=== PATIENT | female | born 1940 | race Caucasian/White ===

== ENCOUNTER 2023-10-31 21:44 | Inpatient (IN) | payer MEDICARE, SELFPAY ==
[2023-10-31] VITALS (7 sets, daily range): BP systolic 113–124; BP diastolic 73–85; BMI 25.7; BMI 25.1
--- NOTE | 2023-10-31 17:39 | ED.GENMED ---
History of Present Illness
General
Chief Complaint: Abdominal Pain
Source: patient
Exam Limitations: none
Time Seen by Provider: 10/31/23 17:06
Nursing documentation reviewed up to this point in time: agreed with
Travel History
Have you had any contact with someone who has COVID-19?: No
Do you have any symptoms of coronavirus? Fever > 100 degrees, chills, cough, shortness of breath, sore throat, loss of taste or smell, muscle aches, or headache?: No
History of Present Illness
History of Present Illness:
83 yr old female presents to the ED for evaluation of left-sided abdominal pain that started middle the night. She has nauseous with this. She denies any radiation. Denies any vomiting. She has been able to drink fluids and take her
medication.She denies any new frequency urgency or dysuria. She reports she was presently on antibiotics for sinus infection, doxycycline however symptoms were not improving and therefore her ENT recently sent a prescription to her pharmacy for
Cipro 5 mg twice a day. Has not taken this yet. She was also on steroids but has stopped these about a week ago.
Past History
Past History
ED Past Medical History: Arrthythmia (atrial tachycardia), Cancer (basal cell carcinoma on back), GERD, Hypercholesterolemia, Psychiatric (generalized anxiety disorder), Other (Seasonal allergies, rheumatic heart disease 1950, BPPV), Other
(osteoarthritis) and Other (Lyme disease, diverticulosis)
ED Past Surgical History: Orthopedic (left wrist fracture 1959) and Other (hallux valgus, bunionectomy, sinoplasty, rhinoplasty)
Social History
Tobacco: Non-smoker
Alcohol: Occasional
Drug: None
Personal:
Living: with family
Employment: Retired
Family History
Family History: CAD
Review of Systems
Review of Systems
Allergies reviewed?: Yes
All Other Systems: ROS reviewed and negative except as documented in HPI and ROS
Constitutional: Reports no symptoms; Denies fever, fatigue or chills
EENT: Reports no symptoms
Respiratory: Reports no symptoms
Cardiac: Reports no symptoms
ABD/GI: Reports abdominal pain and nausea; Denies vomiting
: Reports no symptoms
Musculoskeletal: Reports no symptoms
Skin: Reports no symptoms
Neurological: Reports no symptoms
Psychiatric: Reports no symptoms
Phy Exam
General Physical Exam
General Presentation: no apparent distress
General age: appears stated age
General Skin: warm and dry
General Habitus: normal
General Mental: alert
General Hydration: appears well hydrated
Gastrointestinal Exam
Gastrointestinal Exam: soft and other (tender left side of abdomen, no guarding )
Course
Orders/Labs/Results
Orders:
Orders
10/31/23 17:37
IV Insert/Care/Rem.- Treatment PRN
0.9% Sodium Chloride 1000 ml [Nss] 1,000 ml IV BOLUS
10/31/23 17:39
Ondansetron Injectable [Zofran] 4 mg IV NOW STA
10/31/23 17:54
Complete Blood Count/With Diff Urgent
Comprehensive Metabolic Panel Urgent
Lipase Urgent
Urinalysis Reflex To Culture Urgent
Date Specimen was Collected: 10/31/23
Time Specimen was Collected: 17:43
Urine Microscopic Reflex Cult Urgent
Urine Culture Urgent
ELLY Source: U
Specimen Description:
Date Specimen was Collected: 10/31/23
Time Specimen was Collected: 17:43
10/31/23 18:05
CT Abd/Pel (IV only)-DH only Urgent
Comment:
Reason For Exam: left sided abd pain
10/31/23 20:36
Ciprofloxacin 400 mg IVPB NOW Ciprofloxacin 400 mg/[id number] [Cipro 400 mg] 200 ml IV NOW
MetroNIDAZOLE IVPB 500 mg IVPB NOW MetroNIDAZOLE 500 MG/100 ML [Flagyl 500 mg] 100 ml IV NOW
Abnormal Lab Results
10/31/23
17:54
WBC 14.7 H 10^3/uL
(4.8-10.8)
RBC 4.11 L 10^6/uL
(4.20-5.40)
Hct 36.7 L %
(37.0-47.0)
MCH 32.6 H pg
(27.0-31.0)
Abs Immat Gran (auto) 0.1 H 10^3/uL
(0-0.05)
Absolute Neuts (auto) 11.6 H 10^3/uL
(1.4-6.5)
Absolute Monos (auto) 1.6 H 10^3/uL
(0.1-0.6)
Neutrophils % 78.8 H %
(42.2-75.2)
Lymphocytes % 9.4 L %
(20.5-51.1)
Monocytes % 10.7 H %
(1.7-9.3)
Sodium 133 L mmol/L
(135-145)
BUN 19 H mg/dl
(7-17)
Glucose 106 H mg/dl
(70-99)
Total Bilirubin 2.0 H mg/dl
(0.2-1.3)
Total Protein 6.2 L g/dl
(6.3-8.2)
Urine Bilirubin 1+ A
(Negative)
Leukocyte Esterase Rfl 1+ A
(Negative)
Urine RBC 3-6 A /HPF
(0-2)
Urine Bacteria (Reflex) Moderate A
(Negative)
10/31/23 17:54
10/31/23 17:54
Vital Signs
Initial and Last Documented VS:
Initial Vital Signs
Temp Pulse Resp BP Pulse Ox
97.6 F 98 20 113/78 100
10/31/23 16:57 10/31/23 16:57 10/31/23 16:57 10/31/23 16:57 10/31/23 16:57
Last Documented Vital Signs
Temp Pulse Resp BP Pulse Ox
97.6 F 98 20 117/79 98
10/31/23 16:57 10/31/23 16:57 10/31/23 16:57 10/31/23 20:00 10/31/23 20:15
MDM/Problems Addressed
Differential Diagnosis Includes:
Not limited to UTI diverticulitis pancreatitis constipation colitis
MDM/Problems Addressed:
83-year-old female presents today with left-sided abdominal pain. Patient recently being treated by ENT for sinus infection was on doxycycline supposed to start Cipro today. She also completed steroids about a week ago. She presented awake alert
no weak distress no fever white count minimally elevated. Mildly tender to left abdomen. CT shows findings consistent with diverticulitis with contained perforation. I spoke with Dr. Langley of colorectal surgery. Since patient was supposed to
start Cipro today will order IV Cipro and IV Flagyl. Patient to be admitted to the hospital. Case discussed admitting hospitalist
Chronic conditions affecting care:
Recent sinus infection recently stopped steroids 1 week ago supposed to start Cipro tonight.
*Radiology
Radiology exam reviewed: radiology read reviewed
*Pulse Oximetry
Patient hypoxic: no
*Critical Care Note
Total Time (30-74mins, 75-104mins- exclusive of procedures): Not Applicable
Patient Management
Discussion with other providers: Phlebotomy Lab Assistant (Dr Langley )
ED Attending Note
-
Portions of this chart may have been created with voice recognition software.� Occasional wrong word or��sound alike� substitutions may have occurred due to the inherent limitations of voice recognition software.
Discharge Plan
Departure
Patient Disposition: Admit
Date of Disposition: 10/31/23
Time of Disposition: 20:40
Admit to: Med/Surg
Admit to doctor: hospitalist
Presentation/result/management discussed w/ accepting MD/DO: Hospitalist
Patient with high blood pressure during this ER visit?: No
Condition: Fair
Covid-19: Not Applicable
Discharge Problem:
diverticulitis w/ contained perforation
Prescriptions:
No Action
ketotifen fumarate [Zaditor] 1 DROP drops
1 drp BOTH EYES DAILYPRN PRN (Reason: allergy)
propranolol 60 MG capsule,extended release 24 hr
60 mg PO DAILY
B-complex with vitamin C 1 CAPLET tablet
1 cap PO DAILY
famotidine 20 MG tablet
20 mg PO DAILY
atorvastatin 40 MG tablet
40 mg PO QPM Qty: 30 0RF
lorazepam 0.5 MG tablet
0.5 mg PO Q4HPRN PRN (Reason: anxiety)
Patient Comments:
PATIENT SILK SCREEN ETCHER ON 06/22/21 #30
olopatadine [Patanol] 1 DROP drops
1 drp BOTH EYES DAILYPRN PRN (Reason: allergies)
Bifidobacterium infantis [Align] 4 MG capsule
4 mg PO DAILY
turmeric 400 MG capsule
400 mg PO DAILY
promethazine-codeine 5 ML syrup
10 ml PO BIDPRN PRN (Reason: COUGH)
Patient Comments:
09/21/21-PATIENT SILK SCREEN ETCHER ON 07/08/21 #300ML
spironolactone 25 MG tablet
25 mg PO DAILY
Patient Comments:
PATIENT USE FOR HAIR LOSS
Quencetin
1 tab PO DAILY
Reservetrol
1 cap PO DAILY
apixaban [Eliquis] 5 MG tablet
5 mg PO DIRECTED 30 Days Qty: 74 0RF
Rx Instructions:
take 10mg BID x 1 week, then 5mg BID x 23 days thereafter to complete 1st month.
apixaban [Eliquis] 5 MG tablet
5 mg PO BID 30 Days Qty: 60 1RF
Rx Instructions:
to start after completion of 1st month prescription
Propranolol Hcl [Inderal La] 80 MG Cap.Sa.24h
80 mg PO DAILY Qty: 30 0RF
clindamycin HCl 300 mg capsule
300 mg PO TID 7 Days Qty: 21 0RF
prednisone 20 mg tablet
40 mg PO DAILY 5 Days Qty: 10 0RF
oxycodone 5 mg tablet
5 mg PO BID PRN (Reason: Pain) Qty: 6 0RF
Referrals:
Taty Blanca MD [Family Provider] -
Interventions
Interventions:
*Risk Screen - Suicide Last Done: 10/31/23 16:57
*General Assessment Last Done: 10/31/23 16:57
*Neglect/Abuse Screening Last Done: 10/31/23 16:57
ED- Fall Risk Assessment Last Done: 10/31/23 18:31
XD-Ojehdr-Ugvknlougj Assessment Last Done: 10/31/23 18:31
[2023-10-31] MEDS: ZOFRAN 4 MG IV (17:57)
[2023-10-31] MEDS: NSS 1000 IV (17:58)
[2023-10-31 18:11] LABS: % Basophils 0.3 % (0-2); % Eosinophils 0.3 % (0-6); % Immature Granulocytes 0.5 % (0-0.5); % Lymphocytes 9.4 % (20.5-51.1); % Monocytes 10.7 % (1.7-9.3); % Neutrophils 78.8 % (42.2-75.2); Absolute Immature Granulocytes 0.1 10^3/uL (0-0.05); Absolute Lymphocytes 1.4 10^3/uL (1.2-3.4); Absolute Monocytes 1.6 10^3/uL (0.1-0.6); Absolute Neutrophils 11.6 10^3/uL (1.4-6.5); Hematocrit 36.7 % (37.0-47.0); Hemoglobin 13.4 g/dL (12.0-16.0); Mean Corp Hgb Conc. 36.5 g/dL (33.0-37.0); Mean Corpuscular Hgb 32.6 pg (27.0-31.0); Mean Corpuscular Volume 89.3 fL (81.0-99.0); Mean Platelet Volume 9.9 fL (7.4-10.4); Nucleated Red Blood Cells % 0 %; Platelet Count 168 10^3/uL (130-400); Red Blood Cell Count 4.11 10^6/uL (4.20-5.40); Red Cell Dist. Width 13.6 % (11.5-14.5); White Blood Cell Count 14.7 10^3/uL (4.8-10.8)
[2023-10-31 18:16] LABS: Urine Albumin Trace (Neg - Trace); Urine Bilirubin 1+ (Negative); Urine Character Clear (Clear); Urine Color Amber; Urine Glucose Negative (Negative); Urine Ketone Negative (Negative); Urine Leukocyte 1+ (Negative); Urine Nitrite Negative (Negative); Urine Occult Blood Negative (Negative); Urine Urobilinogen Negative (Neg - 1+)
[2023-10-31 18:22] LABS: ALT (SGPT) 26 U/L (0-35); AST (SGOT) 33 U/L (14-36); Albumin 3.6 g/dl (3.5-5.0); Alkaline Phosphatase 80 U/L (38-126); Blood Urea Nitrogen 19 mg/dl (7-17); Calcium 9.1 mg/dl (8.4-10.2); Carbon Dioxide 22 mmol/L (22-30); Chloride 103 mmol/L (98-107); Estimated Creatinine Clearance 38 ml/min; Glucose 106 mg/dl (70-99); Potassium 4.1 mmol/L (3.5-5.1); Sodium 133 mmol/L (135-145); Total Protein 6.2 g/dl (6.3-8.2); eGFR > 60.00
[2023-10-31 18:33] LABS: Lipase 58 U/L (23-300)
[2023-10-31 18:38] LABS: Urine Mucus Moderate
[2023-10-31 18:40] LABS: Urine Bacteria Moderate (Negative)
[2023-10-31] MEDS: FLAGYL 500 MG 100 IV (21:24)
--- NOTE | 2023-10-31 21:40 | HPS.HSE ---
Addendum entered and electronically signed by Yogi Cho MD 10/31/23 22:05:
#mild bilirubinemia
no RUQ pain
follow LFT
CT without biliary pathology
Original Note:
Family Physician
-
Family Physician: Taty Blanca MD
Chief Complaint
-
abdominal pain
History of Present Illness
83yo F with rosacea, Afib, Hx of PE on ELiquis, pansynusitis, COPD, HLD came with LLQ abd pain found diverticulitis with contained perforation on CT.
Patient was on doxyciclin at home for her pansynusitis preparing for sinus surgery.
Medical History
Past Medical History
Past Medical History: Reports Other
Additional Past Medical History:
as above
Past Surgical History: Reports Other
Additional Past Surgical History:
not pertinent
Social History
Tobacco: Non-smoker
Alcohol: None
Drug: None
Family History
Family History: Not pertinent
Allergies / Home Medications
Allergies reflects when Allergies were last updated in [employer].
Home Medications with original date entered in [employer]
Allergy/Medication List:
Allergies
Allergy/AdvReac Type Severity Reaction Status Date / Time
benzonatate Allergy Unknown Verified 10/31/23 16:57
Sulfa (Sulfonamide Allergy coughing, Verified 10/31/23 16:57
Antibiotics) sneezing,
seasonal Allergy H/A stuffy Uncoded 10/31/23 16:57
nose
sinuitis
Home Medications
atorvastatin 40 mg tablet 40 mg PO QPM #30 tabs 08/31/20
famotidine 20 mg tablet 20 mg PO QPMPRN PRN gerd 08/31/20
spironolactone 25 mg tablet 25 mg PO DAILY HAIR LOSS 09/21/21
apixaban 5 mg tablet (Eliquis) 5 mg PO BID 30 days #60 tabs 09/22/21
Bifidobacterium infantis 10.5 mg (10 million cell) chewable tablet (Align) 10.5 mg PO BID 10/31/23
azelastine 137 mcg (0.1 %) nasal spray aerosol 2 spray intranasal HS 10/31/23
budesonide 160 mcg-glycopyr 9 mcg-formot 4.8 mcg/actuation HFA inhaler (Breztri Aerosphere) 2 inh inhalation R HS 10/31/23
doxycycline monohydrate 100 mg capsule 100 mg PO BID 10/31/23
fluticasone propionate 50 mcg/actuation nasal spray,suspension 1 spray intranasal HS 10/31/23
metronidazole 0.75 % topical gel 1 applic topical HS apply to face 10/31/23
minoxidil 2.5 mg tablet 2.5 mg PO DAILY 10/31/23
montelukast 10 mg tablet 10 mg PO HS 10/31/23
propranolol 40 mg tablet 40 mg PO BID 10/31/23
vitamin B complex 1 tab PO DAILY 10/31/23
Review of Systems
-
History Source: Patient
A 12 point ROS was completed and negative except as noted: Yes
Abdomen/GI: Reports See HPI
Physical Exam
Vital Signs
Vital Signs
Temp Pulse Resp BP Pulse Ox
97.6 F 98 20 117/79 98
10/31/23 16:57 10/31/23 16:57 10/31/23 16:57 10/31/23 20:00 10/31/23 20:15
Physical Exam
General: Well Developed and Well Nourished
HEENT: NormoCephalic and Anicteric
Respiratory: Clear, Wheezes and Rales
Cardiac: S1/S2 and Regular Rhythm
GI: Soft and Tender (LLQ)
Musculoskeletal: No Clubbing, No Cyanosis and No Edema
Skin: Warm
Neuro: Awake, Alert, Oriented and AO x 3
Hematologic/Lymphatic: No Lymphadenopathy
Psych: Calm
Laboratory Results
-
10/31/23 17:54
10/31/23 17:54
Laboratory Results
Total Bilirubin 2.0 mg/dl (0.2-1.3) H 10/31/23 17:54
AST 33 U/L (14-36) 10/31/23 17:54
ALT 26 U/L (0-35) 10/31/23 17:54
Alkaline Phosphatase 80 U/L (38-126) 10/31/23 17:54
Lipase 58 U/L (23-300) 10/31/23 17:54
Impression/Plan
-
a/p:
#Complicated diverticulitis with contained perforation
NPO
Abx: Zosyn
IVF
Colorectal Sx
#Afib, unspecified
cont rate control
#Hx of PE
WIll start Heparin bridging - last carbone of eliquis at 2pm on the day of admission. Start heparin at 2am
#Pansinusisits
#HLD
#Essential HTN
cont hoem meds
DVT ppx on hep drip
Full cose
I have spent at least 78min admitting the patient, reviweing the chart, test results and direct patient care
[2023-10-31] MEDS: ZOSYN 50 IV (22:35)
[2023-11-01 00:11] VITALS: BMI 25.1
[2023-11-01] MEDS: SINGULAIR 10 MG PO (00:17)
[2023-11-01 01:05] LABS: Hematocrit 36.9 % (37.0-47.0); Hemoglobin 13.5 g/dL (12.0-16.0); Mean Corp Hgb Conc. 36.6 g/dL (33.0-37.0); Mean Corpuscular Hgb 32.8 pg (27.0-31.0); Mean Corpuscular Volume 89.6 fL (81.0-99.0); Mean Platelet Volume 9.5 fL (7.4-10.4); Platelet Count 166 10^3/uL (130-400); Red Blood Cell Count 4.12 10^6/uL (4.20-5.40); Red Cell Dist. Width 13.6 % (11.5-14.5); White Blood Cell Count 15.1 10^3/uL (4.8-10.8)
[2023-11-01 01:15] LABS: APTT 38.2 Sec (23.4-35.0)
[2023-11-01] MEDS: HEPARIN 25000 UNITS/250 ML IV (02:18)
[2023-11-01 03:31] VITALS: BP 117/77
[2023-11-01] MEDS: ZOSYN 50 IV ×4 (04:10→22:08)
[2023-11-01 08:00] VITALS: BP 113/79
[2023-11-01 08:48] LABS: % Basophils 0.3 % (0-2); % Eosinophils 0.3 % (0-6); % Immature Granulocytes 0.3 % (0-0.5); % Lymphocytes 12.1 % (20.5-51.1); % Monocytes 9.9 % (1.7-9.3); % Neutrophils 77.1 % (42.2-75.2); Absolute Lymphocytes 1.7 10^3/uL (1.2-3.4); Absolute Monocytes 1.4 10^3/uL (0.1-0.6); Hematocrit 36.4 % (37.0-47.0); Hemoglobin 13.3 g/dL (12.0-16.0); Mean Corp Hgb Conc. 36.5 g/dL (33.0-37.0); Mean Corpuscular Hgb 32.6 pg (27.0-31.0); Mean Corpuscular Volume 89.2 fL (81.0-99.0); Mean Platelet Volume 9.9 fL (7.4-10.4); Nucleated Red Blood Cells % 0 %; Platelet Count 152 10^3/uL (130-400); Red Blood Cell Count 4.08 10^6/uL (4.20-5.40); Red Cell Dist. Width 13.7 % (11.5-14.5); White Blood Cell Count 14.2 10^3/uL (4.8-10.8)
[2023-11-01 08:59] LABS: APTT 76.2 Sec (23.4-35.0)
[2023-11-01 09:46] LABS: ALT (SGPT) 24 U/L (0-35); AST (SGOT) 33 U/L (14-36); Albumin 3.2 g/dl (3.5-5.0); Alkaline Phosphatase 80 U/L (38-126); Blood Urea Nitrogen 16 mg/dl (7-17); Calcium 8.7 mg/dl (8.4-10.2); Carbon Dioxide 17 mmol/L (22-30); Chloride 106 mmol/L (98-107); Estimated Creatinine Clearance 38 ml/min; Glucose 99 mg/dl (70-99); Magnesium 1.8 mg/dl (1.6-2.3); Potassium 4.1 mmol/L (3.5-5.1); Sodium 135 mmol/L (135-145); Total Bilirubin 2.3 mg/dl (0.2-1.3); Total Protein 5.6 g/dl (6.3-8.2); eGFR > 60.00
--- NOTE | 2023-11-01 10:31 | CM ---
Patient seen bedside.
IA completed.
Patient lives with spouse in a multi story home.
No steps to enter on side or back entrance.
Patient has a RW available at home (does not use).
Patient independent prior to admission.
Patient has not had VN or been in a skilled rehab in the past.
Patient requesting name of a stone operator in the area.
PCP: Dr Blanca
Pharmacy: [facility]
Plan: home no needs anticipated.
[2023-11-01 11:00] VITALS: BP 91/67
--- NOTE | 2023-11-01 11:12 | CON.CRS ---
Consultation
-
Date/Time Consultation Requested: 10/31/2023, 23:24
Date/Time Consultation Performed: 11/01/2023, 08:30
Requesting Provider: Yogi Owens MD
Performing Provider: Regan Salas MD
Reason for Consultation: diverticulitis
Medical History
-
Chief Complaint: abdominal pain
History of Present Illness:
83-year-old female with a past medical history of recent PE on Eliquis presents to the emergency department due to abdominal pain. The patient states the pain lasted a few days at [facility] the pain was associated nausea. The patient initially had
attributed this to doxycycline which she was on at home due to upcoming sinus surgery. CT of the abdomen and pelvis in the ER showed distal descending colon likely diverticulitis with contained perforation. On admission her WBC was 14.7. She was
started on antibiotics. Today her white count is 14.2 and she does feel little better. Her last bowel movement was yesterday. She is hungry. She denies fevers or chills. Her last colonoscopy was in 2015 which showed diverticulosis in the
sigmoid and ascending colon and a 3 mm polyp that was an adenoma in her sigmoid colon. This was done by Dr. Motley. She denies a previous history of abdominal surgery. Given the findings on CT we have been consulted for further surgical
recommendations.
Past Medical History
Past Medical History: Arrhythmias (Atrial fibrillation), COPD, GERD, Hypercholesterolemia, Psychiatric (Anxiety) and Other (Rosacea, PE on Eliquis, pansinusitis, Lyme disease history, basal cell carcinoma)
Past Surgical History: Orthopedic (Left wrist fracture repair, hallux valgus, bunionectomy, sinoplasty, rhinoplasty)
Social History
Tobacco: Non-Smoker
Alcohol: Occasional
Drug: None
Personal:
Employment: Retired
Family History
Family History: Reviewed & Not Pertinent
Allergies / Home Medications
Allergy/AdvReac Type Severity Reaction Status Date / Time
benzonatate Allergy Unknown Verified 10/31/23 16:57
Sulfa (Sulfonamide Allergy coughing, Verified 10/31/23 16:57
Antibiotics) sneezing,
seasonal Allergy H/A stuffy Uncoded 10/31/23 16:57
nose
sinuitis
Medication Instructions Recorded Confirmed Type
atorvastatin 40 mg tablet 40 mg PO QPM #30 tabs 08/31/20 10/31/23 Rx
famotidine 20 mg tablet 20 mg PO QPMPRN PRN gerd 08/31/20 10/31/23 History
spironolactone 25 mg tablet 25 mg PO DAILY HAIR LOSS 09/21/21 10/31/23 History
Bifidobacterium infantis 10.5 mg 10.5 mg PO BID Supplement 10/31/23 10/31/23 History
(10 million cell) chewable tablet
(Align)
Tums 1 - 2 tab PO HSPRN PRN gerd 10/31/23 10/31/23 History
azelastine 137 mcg (0.1 %) nasal 2 spray intranasal HS Allergies 10/31/23 10/31/23 History
spray aerosol
budesonide 160 mcg-glycopyr 9 2 inh inhalation R HS 10/31/23 10/31/23 History
mcg-formot 4.8 mcg/actuation HFA Lung/Breathing Issues
inhaler (Breztri Aerosphere)
doxycycline monohydrate 100 mg 100 mg PO BID Infection 10/31/23 10/31/23 History
capsule
fluticasone propionate 50 1 spray intranasal HS Allergies 10/31/23 10/31/23 History
mcg/actuation nasal
spray,suspension
metronidazole 0.75 % topical gel 1 applic topical HS apply to face 10/31/23 10/31/23 History
minoxidil 2.5 mg tablet 2.5 mg PO DAILY Blood Pressure 10/31/23 10/31/23 History
montelukast 10 mg tablet 10 mg PO HS Allergies 10/31/23 10/31/23 History
propranolol 40 mg tablet 40 mg PO BID Blood Pressure 10/31/23 10/31/23 History
vitamin B complex 1 tab PO DAILY Supplement 10/31/23 10/31/23 History
vitamin E 1 tab PO .SEE BELOW 10/31/23 10/31/23 History
Supplement
zinc 1 tab PO DAILY Supplement 10/31/23 10/31/23 History
apixaban 5 mg tablet (Eliquis) 5 mg PO BID Blood Clot 11/01/23 10/31/23 History
Prevention/Tx
Review of Systems
-
History Source: Patient
Abdomen/GI: Abdominal Pain and Nausea
A 10 point review of systems was completed, and was negative except as per HPI.
Physical Exam
Vital Signs
Temp 98.3 F 11/01/23 08:00
Pulse 89 11/01/23 08:00
Resp Rate 16 11/01/23 08:00
Blood pressure 113/79 11/01/23 08:00
SaO2 99 11/01/23 08:00
10/31/23 11/01/23 11/02/23
06:59 06:59 06:59
Actual Weight 62.256 kg
Body Mass Index (BMI) 25.1
Lab Results / Allergies
11/01/23 08:31
11/01/23 08:31
WBC 14.2 10^3/uL (4.8-10.8) H 11/01/23 08:31
Hgb 13.3 g/dL (12.0-16.0) 11/01/23 08:31
Hct 36.4 % (37.0-47.0) L 11/01/23 08:31
Plt Count 152 10^3/uL (130-400) 11/01/23 08:31
Abs Immat Gran (auto) 0.0 10^3/uL (0-0.05) 11/01/23 08:31
Neutrophils % 77.1 % (42.2-75.2) H 11/01/23 08:31
Allergy/AdvReac Type Severity Reaction Status Date / Time
benzonatate Allergy Unknown Verified 10/31/23 16:57
Sulfa (Sulfonamide Allergy coughing, Verified 10/31/23 16:57
Antibiotics) sneezing,
seasonal Allergy H/A stuffy Uncoded 10/31/23 16:57
nose
sinuitis
Physical Exam
General: Well Developed, Well Nourished and No Apparent Distress
GI: Soft and Tender (Left lower quadrant mild)
Neuro: AO x 3
Data Reviewed
-
CT Scan: Image Personally Visualized and interpreted, Report Reviewed by me and Discussed with Physician
Labs: Labs Reviewed by me, Discussed with Physician and Discussed with Patient
Assessment / Plan
-
Assessment: 83-year-old female with a history of PE on Eliquis with left lower quadrant abdominal pain and found to have descending colon diverticulitis, first attack.
Plan:
There is no need for surgical intervention at this time. Recommend advancing to a clear liquid diet. Continue IV fluids and IV antibiotics. Will need eventual colonoscopy. If she were to worsen she will require a colectomy with colostomy
creation. We will follow. I updated her daughter, Gaby, by phone.
--- NOTE | 2023-11-01 11:57 | W.PN.HOSP.TC ---
Today's Communication/Plan
-
clears
ivf
abx
hep gtt
CRS recs
Assessment / Plan
Assessment / Plan
#Complicated diverticulitis with contained perforation
clears and diet per CRS
Abx: Zosyn
IVF
pain control
Colorectal surgery on board
#Afib, unspecified
cont rate control and on hep gtt
#mild bilirubinemia
no RUQ pain
follow LFT
CT without biliary pathology
#Hx of PE and dvt
Cont with Heparin bridging - last carbone of eliquis at 2pm on the day of admission.
#Pansinusisits
#HLD-hold statin
#Essential HTN
cont inderal with hold parameters
hold minoxidil for now
#Hx of breast cancer
DVT ppx on hep drip
Full cose
Anticipated Discharge: > 48 hours
Subjective/Interval History
-
Date of Service: November 01, 2023
States of abdominal pain
Objective Data
-
Labs:
Laboratory Results
11/01/23 11/01/23
00:51 08:31
WBC 15.1 H 14.2 H
Hgb 13.5 13.3
Hct 36.9 L 36.4 L
Plt Count 166 152
APTT 38.2 H 76.2 H
Sodium 135
Potassium 4.1
Chloride 106
Carbon Dioxide 17 L
BUN 16
Creatinine 0.9
Glucose 99
Calcium 8.7
Total Bilirubin 2.3 H
AST 33
ALT 24
Alkaline Phosphatase 80
Vital Signs:
Vital Signs
Temp Pulse Resp BP Pulse Ox
98.3 F 89 16 113/79 99
11/01/23 08:00 11/01/23 08:00 11/01/23 08:00 11/01/23 08:00 11/01/23 08:00
Physical Exam
-
General: Well Developed and No Apparent Distress
HEENT: Normocephalic, Atraumatic and Moist Mucous Membranes
Respiratory: Clear to Auscultation
Cardiac: Regular Rhythm and S1/S2; Negative Murmur, Rub or Gallop
GI: Soft, Nondistended, Normal Bowel Sounds and Tender; Negative Organomegaly
Rectal: Deferred by Provider
Musculoskeletal: No Clubbing, No Cyanosis and No Edema
Skin: Negative Rash
Neuro: Awake, AO x 3, No Motor Deficits and Nonfocal/Grossly Intact
Psych: Calm
[2023-11-01 15:00] VITALS: BP 104/68
[2023-11-01 17:35] LABS: APTT 134.4 Sec (23.4-35.0)
[2023-11-01 19:30] VITALS: BP 113/78
[2023-11-01] MEDS: INDERAL 40 MG PO (20:29)
[2023-11-01 23:00] VITALS: BP 115/75
[2023-11-02] VITALS (7 sets, daily range): BP systolic 93–120; BP diastolic 64–83; PULSE 94–105
[2023-11-02 01:33] LABS: APTT 89.2 Sec (23.4-35.0)
[2023-11-02] MEDS: ZOSYN 50 IV ×4 (04:12→21:44)
[2023-11-02] MEDS: HEPARIN 25000 UNITS/250 ML IV (04:21)
[2023-11-02] MEDS: VISBIOME 1 CAP PO (07:37)
[2023-11-02] MEDS: INDERAL PO ×2 (07:39→20:02)
[2023-11-02 08:19] LABS: Hematocrit 38.5 % (37.0-47.0); Hemoglobin 13.8 g/dL (12.0-16.0); Mean Corp Hgb Conc. 35.8 g/dL (33.0-37.0); Mean Corpuscular Hgb 32.5 pg (27.0-31.0); Mean Corpuscular Volume 90.8 fL (81.0-99.0); Mean Platelet Volume 9.7 fL (7.4-10.4); Platelet Count 179 10^3/uL (130-400); Red Blood Cell Count 4.24 10^6/uL (4.20-5.40); Red Cell Dist. Width 13.5 % (11.5-14.5); White Blood Cell Count 12.4 10^3/uL (4.8-10.8)
[2023-11-02 08:31] LABS: APTT 87.7 Sec (23.4-35.0)
[2023-11-02 09:56] LABS: Blood Urea Nitrogen 13 mg/dl (7-17); Calcium 8.9 mg/dl (8.4-10.2); Carbon Dioxide 19 mmol/L (22-30); Chloride 104 mmol/L (98-107); Estimated Creatinine Clearance 34 ml/min; Glucose 120 mg/dl (70-99); Potassium 3.8 mmol/L (3.5-5.1); Sodium 133 mmol/L (135-145); eGFR 56.25
--- NOTE | 2023-11-02 09:58 | PN.CDI ---
CDI
- -
CDI:
Physician Documentation Request
Admit Date: 10/31/23 21:44
Dear Doctor Josette,
Patient admitted for diverticulitis with perforation.
10/31/23
17:54
WBC 14.7 H
10/31/23
16:57 10/31/23
23:15 11/01/23
03:31
Pulse 98 97 97
10/31/23
16:57 10/31/23
22:45 10/31/23
23:15
Resp Rate 20 22 23
Please clarify which of the following most accurately describes the status of the patient's infection:
Sepsis
- Systemic manifestations of infection, with 2 or more SIRS criteria which include:
- Fever >100.4 degrees F or hypothermia < 96.8 degrees F
- Leukocytosis - WBC > 12,000 or leukopenia - WBC < 4,000 or > 10% bands
- Tachycardia > 90 beats per minute
- Tachypnea - RR > 20 breaths per minute or PaCO2 , 32mmHg
Source: Merck Manual 2012
Diverticulitis Only, Without Systemic Illness
- indicate the site/source, such as UTI, pneumonia etc.
Other
Use of terms such as suspected, likely, concern for, or probable (associated with a specific diagnosis that is being evaluated, monitored, or treated as if it exists) are acceptable and can be coded in the inpatient setting, when documented at the
time of discharge.
Thank you,
Deborah Smith RN, BSN
CDI Specialist
Available via [place] text
Please use your independent medical judgment in providing your response.
--- NOTE | 2023-11-02 10:34 | W.PN.CRS1 ---
Today's Communication / Plan
-
Low residue
Assessment/Plan
-
Assessment: 83-year-old female with a history of PE on Eliquis with left lower quadrant abdominal pain and found to have descending colon diverticulitis, first attack.
Plan:
1. There is no need for surgical intervention at this time.�
2. Advance diet to a low residue diet.�
3. Continue antibiotics.
4. Will need eventual colonoscopy in outpatient setting.
5. Okay for discharge later today from our perspective if she tolerates a low residue diet. Follow-up in the office in a few weeks with Dr. Salas. All questions answered.
Subjective Data
Subjective Data
Date of Service: November 02, 2023
Patient states she feels much better today. She denies nausea or vomiting. She has no pain. She describes her symptoms like a 'sensitivity in her abdomen'. She is having bowel movements. She has no blood in her stool. She has no complaints at
this time.
Objective Data
-
Vital Signs
Temp Pulse Resp BP Pulse Ox
97.4 F 94 16 98/68 97
11/02/23 07:24 11/02/23 07:39 11/02/23 07:24 11/02/23 07:39 11/02/23 07:34
Intake & Output
11/01/23 11/02/23 11/03/23
06:59 06:59 06:59
Intake Total 1320 / 1320 290 / 290
Balance 1320 / 1320 290 / 290
Intake:
Oral fluids 1200 / 1200 240 / 240
IV piggybacks 120 / 120 50 / 50
Other:
Number of approximated MODERATE 1 2 1
amounts of urine
Number of approximated LARGE 1
amounts of urine
Lab Results
11/02/23 08:10
11/02/23 08:10
Physical Exam
-
General: No Acute Distress and AOx3
Abdomen: Soft, Non Distended and Tender (Mild)
Skin: Warm and Dry
--- NOTE | 2023-11-02 12:06 | W.PN.HOSP.TC ---
Today's Communication/Plan
-
Monitor diet tolerance
Abx
Monitor BP
Holding BP meds
Assessment / Plan
Assessment / Plan
#Complicated diverticulitis with contained perforation
#Sepsis 2/2 above
Diet advanced per CRS. Remains with abd pain.
Abx: Zosyn
IVF DCed.
pain control
wbc improving
Colorectal surgery on board
#Afib, unspecified
cont rate control and on hep gtt
#mild bilirubinemia
no RUQ pain
follow LFT
CT without biliary pathology
#Hx of PE and dvt
Cont with Heparin bridging - last dose of eliquis at 2pm on the day of admission.
#Pansinusisits
#HLD-hold statin
#Essential HTN
cont inderal with hold parameters
hold minoxidil and aldcatone for now
BP 98/68
#Hx of breast cancer
DVT ppx on hep drip
Full cose
Anticipated Discharge: Within 24 hours
Subjective/Interval History
-
Date of Service: November 02, 2023
states walked in the hallway without any problems
remains with abd pain/discomfort
Objective Data
-
Labs:
Laboratory Results
11/02/23 11/02/23
00:59 08:10
WBC 12.4 H
Hgb 13.8
Hct 38.5
Plt Count 179
APTT 89.2 H 87.7 H
Sodium 133 L
Potassium 3.8
Chloride 104
Carbon Dioxide 19 L
BUN 13
Creatinine 1.0
Glucose 120 H
Calcium 8.9
Vital Signs:
Vital Signs
Temp Pulse Resp BP Pulse Ox
97.4 F 94 16 98/68 97
11/02/23 07:24 11/02/23 07:39 11/02/23 07:24 11/02/23 07:39 11/02/23 07:34
I&O
11/01/23 11/02/23 11/03/23
06:59 06:59 06:59
Intake Total 1320 / 1320 290 / 290
Balance 1320 / 1320 290 / 290
Physical Exam
-
General: Well Developed and No Apparent Distress
HEENT: Normocephalic, Atraumatic and Moist Mucous Membranes
Respiratory: Clear to Auscultation
Cardiac: Regular Rhythm and S1/S2; Negative Murmur, Rub or Gallop
GI: Soft, Nondistended, Normal Bowel Sounds and Tender (LLQ); Negative Organomegaly
Rectal: Deferred by Provider
Musculoskeletal: No Clubbing, No Cyanosis and No Edema
Skin: Negative Rash
Neuro: Awake, AO x 3, No Motor Deficits and Nonfocal/Grossly Intact
Psych: Calm
--- NOTE | 2023-11-02 16:58 | CM ---
Addendum entered by Amie Delvalle 11/02/23 16:59:
patient given names and phone number of dairy feed worker in the area.
Original Note:
patient continues with iv abx,still with abd pain,monitoring bp.patient will have no needs when dc home.
[2023-11-03 03:22] VITALS: BP 107/73
[2023-11-03] MEDS: ZOSYN 50 IV ×2 (03:28→09:02)
[2023-11-03] MEDS: HEPARIN 25000 UNITS/250 ML IV (05:36)
[2023-11-03 07:00] VITALS: BP 120/83
[2023-11-03 08:05] LABS: APTT 72.4 Sec (23.4-35.0)
--- NOTE | 2023-11-03 08:32 | W.PN.CRS1 ---
Today's Communication / Plan
-
Okay for discharge from CRS standpoint
Assessment/Plan
-
Patient is an 83-year-old female with PMH of DVT/PE (on Eliquis), A-fib, COPD, GERD, HLD, Lyme's disease who presented with acute abdominal pain, CT showing likely diverticulitis versus colitis in the distal descending colon with associated
microperforation that is contained; WBC 14.7, being treated nonoperatively; last colonoscopy in 2015 showing diverticulosis and a tubular adenoma
AFVSS, abdomen soft, nondistended, minimally tender in the left lower quadrant
No WBC this morning yet
� Continue nonoperative management, no acute surgical intervention currently indicated
� Continue low residue diet for 2 weeks
� Continue pain control with Tylenol and morphine as needed
� Continue Zosyn, would discharge with antibiotics for total of 7 days
� OOB/IS
� Okay for DC from CRS perspective; will need follow-up with Dr. Salas and repeat colonoscopy as outpatient
Subjective Data
Subjective Data
Date of Service: November 03, 2023
No overnight events.
Pain controlled.
Denies nausea/vomiting. Tolerating diet.
+BMs +voiding
Pt is OOB.
Objective Data
-
Vital Signs
Temp Pulse Resp BP Pulse Ox
97.8 F 96 18 107/73 99
11/03/23 03:22 11/03/23 03:22 11/03/23 03:22 11/03/23 03:22 11/03/23 03:22
Intake & Output
11/02/23 11/03/23 11/04/23
06:59 06:59 06:59
Intake Total 1320 / 1320 1218 / 1218
Balance 1320 / 1320 1218 / 1218
Intake:
Oral fluids 1200 / 1200 960 / 960
IV piggybacks 120 / 120 258 / 258
Other:
Number of approximated MODERATE 2 2
amounts of urine
Number of approximated LARGE 1
amounts of urine
Number of unmeasured liquid
stools
Rectum 2
Lab Results
11/02/23 08:10
Physical Exam
-
General: No Acute Distress and AOx3
HEENT: Grossly Normal
Abdomen: Soft, Non Distended, Non Tender, No Guarding and No Rebound
Skin: Warm and Dry
[2023-11-03 08:55] LABS: Blood Urea Nitrogen 13 mg/dl (7-17); Calcium 8.8 mg/dl (8.4-10.2); Carbon Dioxide 19 mmol/L (22-30); Chloride 108 mmol/L (98-107); Estimated Creatinine Clearance 43 ml/min; Glucose 89 mg/dl (70-99); Sodium 136 mmol/L (135-145); eGFR > 60.00
[2023-11-03] MEDS: INDERAL 40 MG PO (08:55)
[2023-11-03] MEDS: VISBIOME 1 CAP PO (08:55)
[2023-11-03] MEDS: ELIQUIS 5 MG PO (09:53)
[2023-11-03 11:00] VITALS: BP 89/61
--- NOTE | 2023-11-03 11:33 | W.PN.HOSP.TC ---
Addendum entered and electronically signed by Keyur Finch MD 11/03/23 13:05:
Patient stated blood pressure at home is controlled. Blood pressure improved s/p post IV fluids. Patient asymptomatic. Wants to go home. Recommended blood pressure check with hold parameters for propranolol.
Addendum entered and electronically signed by Keyur Finch MD 11/03/23 11:47:
Patient received propranolol earlier leading to drop in blood pressure and patient was symptomatic. Will bolus 500 cc and dose of midodrine. Monitor for now. Hold discharge for now.
Original Note:
Today's Communication/Plan
-
DC home
Low residue diet
Outpatient follow-up with colorectal surgery
Assessment / Plan
Assessment / Plan
#Complicated diverticulitis with contained perforation
#Sepsis 2/2 above
Diet advanced per CRS. Tolerating low residue diet
Abx: Zosyn and switch to Augmentin on discharge
IVF DCed.
pain control
wbc improving
Colorectal surgery on board
#Afib, unspecified
Continue propranolol and Eliquis. Heparin drip discontinued.
Follows with [facility]
#mild bilirubinemia
no RUQ pain
follow LFT
CT without biliary pathology
#Hx of PE and dvt
Restart Eliquis
#Pansinusisits
#HLD-hold statin
#Essential HTN
cont inderal with hold parameters
hold minoxidil and aldcatone for now patient-which patient takes for hair loss
#Hx of breast cancer
DVT ppx Eliquis
Full dose
More than 30 minutes spent in discharge including
Final examination of the patient
Summarizing hospital stay
Instructions for continuing care to all relevant caregivers
Preparation of discharge records, prescriptions, and referral forms
Total time spent (in minutes): 45
Anticipated Discharge: Today
Subjective/Interval History
-
Date of Service: November 03, 2023
Significant improvement in abdominal pain
Tolerating diet
Objective Data
-
Labs:
Laboratory Results
11/03/23 11/03/23
07:14 15:00
APTT 72.4 H Cancelled
Sodium 136
Potassium 4.0
Chloride 108 H
Carbon Dioxide 19 L
BUN 13
Creatinine 0.8
Glucose 89
Calcium 8.8
Vital Signs:
Vital Signs
Temp Pulse Resp BP Pulse Ox
97.4 F 85 18 120/83 98
11/03/23 07:00 11/03/23 07:00 11/03/23 07:00 11/03/23 07:00 11/03/23 07:00
I&O
11/02/23 11/03/23 11/04/23
06:59 06:59 06:59
Intake Total 1320 / 1320 1218 / 1218
Balance 1320 / 1320 1218 / 1218
Physical Exam
-
General: Well Developed and No Apparent Distress
HEENT: Normocephalic, Atraumatic and Moist Mucous Membranes
Respiratory: Clear to Auscultation
Cardiac: Regular Rhythm and S1/S2; Negative Murmur, Rub or Gallop
GI: Soft, Nontender, Nondistended and Normal Bowel Sounds; Negative Organomegaly
Rectal: Deferred by Provider
Musculoskeletal: No Clubbing, No Cyanosis and No Edema
Skin: Negative Rash
Neuro: Awake, AO x 3, No Motor Deficits and Nonfocal/Grossly Intact
Psych: Calm
--- NOTE | 2023-11-03 11:38 | W.DCSUMMARY ---
Discharge Summary
Discharge Data
Date of Admission: 10/31/23
Date of Discharge: 11/03/23
-
Pending Results: No
Hospital Course
83 female past med history of atrial fibrillation, PE, DVT, hypertension, history of breast cancer here with abdominal pain. Patient underwent CT abdomen pelvis which showed Markedly limited evaluation of intestinal tract without oral contrast and
with some relative paucity of intra-abdominal fat with some stranding seen about short segment of the distal descending colon as well as a few bubbles of air immediately adjacent to the distal descending colon. Findings most likely represent
diverticulitis with contained perforation although colitis cannot be differentiated (identification of diverticula proper are limited). No intestinal obstruction, free air or gross abnormal focal fluid collection. Patient was kept n.p.o. and
colorectal surgery was consulted. Patient was started on IV fluids and IV antibiotics with Zosyn. Bilateral by the patient patient was on liquid diet. Patient was tolerating liquid diet and diet was slowly advanced to low residue. Patient with
history of multiple clots and as well as all Eliquis was held and heparin was started during hospitalization. As patient was tolerating low residue diet IV heparin was discontinued and started back on Eliquis. Patient will be to continue low
residue diet and will follow-up with Dr. Salas as outpatient for colonoscopy. Patient also with episode of hypotension and received IV fluid resuscitation. Patient was recommended to check her blood pressure with hold parameters from propranolol.
Patient was also recommended to consider discontinuing minoxidil and Aldactone as with hypotension for hair loss. Patient stated she will follow-up with her primary doctor next week. Patient will check blood pressure at home.
Discharge Plan
-
Patient Disposition: Home (Routine Discharge)
Discharge Diagnosis/Procedures: Complicated diverticulitis with contained perforation
Condition: Fair
Diet: Low Residue
Activity: With assistance and As tolerated
Driving Restrictions: As prior to admission
Blood Work: Recommend repeat CMP in 1 week with primary doctor and follow bilirubin level
Activity Restrictions/Additional Instructions:
Recommend to check blood pressure daily and hold propranolol for blood pressure less than 110/80.
Referrals:
Morgan Salas MD [Active] - in two weeks
Taty Blanca MD [Family Provider] - in less than 1 week (Follow-up with primary doctor for blood pressure management and elevated bilirubin level)
Prescriptions:
New
amoxicillin-pot clavulanate 875-125 mg tablet
1 tab PO BID Qty: 14 0RF
Continued
famotidine 20 MG tablet
20 mg PO QPMPRN PRN (Reason: gerd)
atorvastatin 40 MG tablet
40 mg PO QPM Qty: 30 0RF
Patient Comments:
10/31/2023, pt. took this med. in the morning today but she states that it is normally taken around dinner time.
vitamin B complex Tablet
1 tab PO DAILY
montelukast 10 mg Tablet
10 mg PO HS
azelastine 137 mcg (0.1 %) Aerosol,[place]
2 spray INTRANASAL HS
fluticasone propionate 50 mcg/actuation [place],Suspension
1 spray INTRANASAL HS
metronidazole 0.75 % Gel
1 applic TOPICAL HS
Align 10.5 mg (10 million cell) Tablet,Chewable
10.5 mg PO BID
Breztri Aerosphere 160-9-4.8 mcg/actuation Hfa Aerosol Inhaler
2 inh INHALATION R HS
Patient Comments:
10/31/2023, pt. states that they take 2 puffs at bedtime.
Tums
1 - 2 tab PO HSPRN PRN (Reason: gerd)
vitamin E
1 tab PO .SEE BELOW
Patient Comments:
10/31/2023, pt. unsure if they take this vitamin in AM or PM.
zinc
1 tab PO DAILY
Eliquis 5 MG tablet
5 mg PO BID
propranolol 40 mg Tablet
40 mg PO BID Qty: 0 0RF
Rx Instructions:
Hold for BP less than 110/80
Held
spironolactone 25 MG tablet
25 mg PO DAILY
Hold Instructions: Resume on 11/24/23. Hold till primary doctor evaluation
minoxidil 2.5 mg Tablet
2.5 mg PO DAILY
Hold Instructions: Resume on 11/24/23. Hold till primary doctor evaluation
Discontinued
doxycycline monohydrate 100 mg Capsule
100 mg PO BID
Patient Comments:
10/31/2023, per pt., this med. was stopped today.
Discharge Orders:
Discharge Patient (As Directed); Ordered 11/03/23
Ordered By: Keyur Finch
[2023-11-03] MEDS: ProAmatine 5 MG PO (11:54)
[2023-11-03] MEDS: NSS 250 IV (11:56)
[2023-11-03 12:49] VITALS: BP 113/82
--- NOTE | 2023-11-03 12:53 | PTCARENOTE ---
during routine check, BP 89/61. Patient asymptomatic. Had received scheduled AM dose of Propranolol. Dr. Finch aware, order received for NSS bolus, given. Repeat BP 113/82. Patient offers no complaints eager for discharge.
--- NOTE | 2023-11-03 13:13 | CM ---
Patient seen bedside.
Per patient no home care needs.
Spouse will transport.
IMM reviewed and signed.
Plan: home no needs
== END 2023-11-03 14:10 | disposition home or self-care (01) | DRG 872 ==
LOC: 4 WEST ACU 21:44
PROVIDERS: Nurse Practitioner; ADMITTING PHYSICIAN Internal Medicine; ATTENDING PHYSICIAN Hospitalist; EMERGENCY PHYSICIAN Emergency Medicine; FAMILY PHYSICIAN Family Medicine; OTHER PHYSICIAN Surgery
DX: A41.9 Sepsis, unspecified organism (principal); K57.20 Diverticulitis of large intestine with perforation and abscess without bleeding; R17 Unspecified jaundice; I48.91 Unspecified atrial fibrillation; I10 Essential (primary) hypertension; Z79.01 Long term (current) use of anticoagulants; E78.00 Pure hypercholesterolemia, unspecified
CPT/HCPCS: 74177; 80048; 80053; 81003; 81015; 83690; 83735; 85025; 85027; 85730; 87086; 96361; 96374; 99285; Q9967

== ENCOUNTER → 2023-11-08 08:02 | Outpatient (REF) | payer MEDICARE, SELFPAY ==
[2023-11-08 08:40] LABS: % Basophils 0.5 % (0-2); % Eosinophils 2.2 % (0-6); % Immature Granulocytes 0.7 % (0-0.5); % Lymphocytes 22.7 % (20.5-51.1); % Monocytes 8.8 % (1.7-9.3); % Neutrophils 65.1 % (42.2-75.2); Absolute Eosinophils 0.2 10^3/uL (0-0.7); Absolute Immature Granulocytes 0.1 10^3/uL (0-0.05); Absolute Lymphocytes 1.7 10^3/uL (1.2-3.4); Absolute Monocytes 0.7 10^3/uL (0.1-0.6); Absolute Neutrophils 4.8 10^3/uL (1.4-6.5); Hematocrit 40.9 % (37.0-47.0); Hemoglobin 14.3 g/dL (12.0-16.0); Mean Corpuscular Hgb 32.4 pg (27.0-31.0); Mean Corpuscular Volume 92.5 fL (81.0-99.0); Mean Platelet Volume 9.4 fL (7.4-10.4); Nucleated Red Blood Cells % 0 %; Platelet Count 354 10^3/uL (130-400); Red Blood Cell Count 4.42 10^6/uL (4.20-5.40); Red Cell Dist. Width 14.3 % (11.5-14.5); White Blood Cell Count 7.4 10^3/uL (4.8-10.8)
[2023-11-08 09:08] LABS: ALT (SGPT) 126 U/L (0-35); AST (SGOT) 82 U/L (14-36); Albumin 3.6 g/dl (3.5-5.0); Alkaline Phosphatase 99 U/L (38-126); Blood Urea Nitrogen 16 mg/dl (7-17); Calcium 9.7 mg/dl (8.4-10.2); Carbon Dioxide 26 mmol/L (22-30); Chloride 104 mmol/L (98-107); Glucose 90 mg/dl (70-99); Iron 108 ug/dl (37-170); Potassium 4.1 mmol/L (3.5-5.1); Sodium 139 mmol/L (135-145); Total Bilirubin 0.8 mg/dl (0.2-1.3); Total Protein 6.3 g/dl (6.3-8.2); eGFR > 60.00
[2023-11-08 09:17] LABS: Percent Saturation 48 % (20-50); Total Iron Binding Capacity 221 ug/dl (265-497)
[2023-11-08 13:16] LABS: tTG IgA Antibody 6.2 EU/ml (0-19); tTG IgG Antibody 5.4 EU/ml (0-19)
[2023-11-09 05:18] LABS: IgA 112 mg/dl (70-400)
[2023-11-09 15:34] LABS: Lyme Antibody Screen, EIA Negative (Negative)
[2023-11-09 22:03] LABS: Endomysial IgA Antibody Titer <1:10 (<1:10)
== END ==
LOC: REG 08:02
PROVIDERS: ATTENDING PHYSICIAN Family Medicine
DX: R53.83 Other fatigue (principal); L65.9 Nonscarring hair loss, unspecified
CPT/HCPCS: 36415; 80053; 82728; 82784; 83516; 83540; 83550; 85025; 86231; 86618

== ENCOUNTER → 2023-11-20 16:43 | Outpatient (REF) | payer MEDICARE, SELFPAY ==
[2023-11-20 17:52] LABS: ALT (SGPT) 52 U/L (0-35); AST (SGOT) 57 U/L (14-36); Alkaline Phosphatase 128 U/L (38-126); Blood Urea Nitrogen 21 mg/dl (7-17); Calcium 9.6 mg/dl (8.4-10.2); Carbon Dioxide 25 mmol/L (22-30); Chloride 105 mmol/L (98-107); Glucose 101 mg/dl (70-99); Potassium 4.2 mmol/L (3.5-5.1); Sodium 139 mmol/L (135-145); Total Bilirubin 0.7 mg/dl (0.2-1.3); Total Protein 6.6 g/dl (6.3-8.2); eGFR > 60.00
== END ==
LOC: REG 16:43
PROVIDERS: ATTENDING PHYSICIAN Family Medicine
DX: R79.89 Other specified abnormal findings of blood chemistry (principal)
CPT/HCPCS: 36415; 80053

== ENCOUNTER 2023-11-22 07:45 | Emergency (ER) | payer MEDICARE, SELFPAY ==
[2023-11-22 07:48] VITALS: BP 138/94
[2023-11-22 08:02] VITALS: BMI 26.3
[2023-11-22 08:04] VITALS: BP 125/91
--- NOTE | 2023-11-22 08:22 | ED.GENMED ---
History of Present Illness
General
Chief Complaint: Back Pain
Source: patient
Exam Limitations: none
Time Seen by Provider: 11/22/23 07:59
Nursing documentation reviewed up to this point in time: agreed with
Travel History
Have you had any contact with someone who has COVID-19?: No
Do you have any symptoms of coronavirus? Fever > 100 degrees, chills, cough, shortness of breath, sore throat, loss of taste or smell, muscle aches, or headache?: No
History of Present Illness
History of Present Illness:
Patient is a 83-year-old female who presents to the ER for evaluation of right-sided back pain that started middle the night with taking a deep breath. She does feel short of breath because she feels like she cannot get a good deep breath in
because of pain. She does feel the pain is minimally worse when sitting up and moving. she denies any chest pain. She does have a history of DVT and PE in the past however is on Eliquis and has not missed a dose. She took her dose today. She
denies any associated chest pain lower extremity swelling. She denies any recent illness fever chills cough. She denies any recent trauma injury but does admit to doing yard work 2 days ago.
Past History
Past History
ED Past Medical History: Arrthythmia (atrial tachycardia), Cancer (basal cell carcinoma on back), GERD, Hypercholesterolemia, Psychiatric (generalized anxiety disorder), Other (Seasonal allergies, rheumatic heart disease 1950, BPPV), Other
(osteoarthritis) and Other (Lyme disease, diverticulosis)
ED Past Surgical History: Orthopedic (left wrist fracture 1959) and Other (hallux valgus, bunionectomy, sinoplasty, rhinoplasty)
Social History
Tobacco: Non-smoker
Alcohol: Occasional
Drug: None
Personal:
Living: with family
Employment: Retired
Family History
Family History: CAD
Review of Systems
Review of Systems
Allergies reviewed?: Yes
All Other Systems: ROS reviewed and negative except as documented in HPI and ROS
Constitutional: Reports no symptoms; Denies fever, fatigue or chills
EENT: Reports no symptoms
Respiratory: Reports trouble breathing and other (pain to right posterior rib with deep breath )
Cardiac: Reports no symptoms; Denies chest pain, diaphoresis, palpitations or syncope
ABD/GI: Reports no symptoms
: Reports no symptoms
Musculoskeletal: Reports no symptoms
Skin: Reports no symptoms
Neurological: Reports no symptoms
Hematologic/Lymphatic: Reports no symptoms
Psychiatric: Reports no symptoms
Phy Exam
General Physical Exam
General Presentation: no apparent distress
General age: appears stated age
General Skin: warm and dry
General Habitus: normal
General Mental: alert
General Hydration: appears well hydrated
Cardiovascular Exam
Cardiovascular Exam: regular rate/rhythm, no murmur and normal peripheral pulses
Pulmonary Exam
Pulmonary Exam: lungs clear, no respiratory distress and other (no tenderness to right posterior rib region )
Neurological Exam
Neurological Exam: alert and oriented x3
Musculoskeletal Exam
Musculoskeletal Exam: full ROM
Skin Exam
Skin Exam: normal color, warm/dry and other (no rash to back )
Psychiatric Exam
Psychiatric Exam: normal mood/affect
Course
Orders/Labs/Results
Orders:
Orders
11/22/23 08:19
IV Insert/Care/Rem.- Treatment PRN
11/22/23 08:20
CT Chest Pe Study Urgent
Comment:
Reason For Exam: right posterior back pain with deep breath
Cardiac Monitoring- Treatment ONCE
11/22/23 08:21
Electrocardiogram (*1) Stat
Reason for Study: Other
Other Reason for Exam: chest pain
EKG- Treatment ONCE
11/22/23 08:34
Complete Blood Count/With Diff Urgent
Comprehensive Metabolic Panel Urgent
Troponin I Urgent
11/22/23 11:15
Acetaminophen [Tylenol] 650 mg PO NOW STA
diazePAM [Valium Injection] 2 mg IV NOW STA
11/22/23 11:18
Lidocaine [Lidocaine 4% Patch] 1 patch TOPICAL NOW STA
Abnormal Lab Results
11/22/23
08:34
RBC 3.87 L 10^6/uL
(4.20-5.40)
Hct 34.3 L %
(37.0-47.0)
MCH 32.3 H pg
(27.0-31.0)
Abs Immat Gran (auto) 0.1 H 10^3/uL
(0-0.05)
Absolute Neuts (auto) 6.8 H 10^3/uL
(1.4-6.5)
Absolute Monos (auto) 1.0 H 10^3/uL
(0.1-0.6)
Immature Gran % 0.6 H %
(0-0.5)
Lymphocytes % 19.1 L %
(20.5-51.1)
Monocytes % 9.7 H %
(1.7-9.3)
BUN 18 H mg/dl
(7-17)
AST 57 H U/L
(14-36)
ALT 57 H U/L
(0-35)
11/22/23 08:34
11/22/23 08:34
Vital Signs
Initial and Last Documented VS:
Initial Vital Signs
Temp Pulse Resp BP Pulse Ox
98.0 F 88 16 138/94 99
11/22/23 07:48 11/22/23 07:48 11/22/23 07:48 11/22/23 07:48 11/22/23 07:48
Last Documented Vital Signs
Temp Pulse Resp BP Pulse Ox
98.0 F 89 20 101/72 97
11/22/23 07:48 11/22/23 12:30 11/22/23 12:30 11/22/23 12:00 11/22/23 12:30
Tree Tapping Laborer consulted with Physician
Tree Tapping Laborer consulted with physician?: Yes
Name of Physician Consulted: jair
MDM/Problems Addressed
Differential Diagnosis Includes:
Not limited to PE though less likely as patient is anticoagulated, muscular pain, shingles though no rash presently
MDM/Problems Addressed:
Patient is 83-year-old female who presented with right-sided back pain worse with deep breath no obvious injury but does admit to doing yard work several days ago. She does have history of PE however is anticoagulated. CT performed and negative
for PE. Patient in no acute distress not hypoxic nontachypneic was given low-dose Valium IV Tylenol lidocaine patch feeling much better likely muscular. Patient is far more comfortable and looks well feels well to go home. Patient is on blood
thinners will avoid NSAIDs will give Tylenol. Will give low-dose Valium patient is on p.o. Ativan intermittently however tells me she rarely takes it I discussed with patient she may not take this with Valium.
Chronic conditions affecting care:
History of PE anticoagulated
*Radiology
Radiology exam reviewed: radiology read reviewed
*Pulse Oximetry
Patient hypoxic: no
*EKG
Interpreted by ED Provider?: Yes
Interpretation: abnormal
Heart Rate: 84
Rate: normal
Rhythm: a-fib
Ischemia: non-specific ST changes
*Critical Care Note
Total Time (30-74mins, 75-104mins- exclusive of procedures): Not Applicable
ED Attending Note
-
Portions of this chart may have been created with voice recognition software.� Occasional wrong word or��sound alike� substitutions may have occurred due to the inherent limitations of voice recognition software.
Discharge Plan
Departure
Patient Disposition: Home (Routine Discharge)
Date of Disposition: 11/22/23
Time of Disposition: 13:27
Patient with high blood pressure during this ER visit?: Yes
Covid-19: Not Applicable
Discharge Problem:
Back pain
Instructions: Back Pain, BLOOD PRESSURE
Prescriptions:
New
diazepam [Valium] 2 mg tablet
2 mg PO TID PRN (Reason: muscle spasm) Qty: 10 0RF
lidocaine 5 % adhesive patch,medicated
1 patch topical DAILY PRN (Reason: pain) Qty: 15 0RF
No Action
famotidine 20 MG tablet
20 mg PO QPMPRN PRN (Reason: gerd)
atorvastatin 40 MG tablet
40 mg PO QPM Qty: 30 0RF
Patient Comments:
10/31/2023, pt. took this med. in the morning today but she states that it is normally taken around dinner time.
spironolactone 25 MG tablet
25 mg PO DAILY
Hold Instructions: Resume on 11/24/23. Hold till primary doctor evaluation
minoxidil 2.5 mg Tablet
2.5 mg PO DAILY
Hold Instructions: Resume on 11/24/23. Hold till primary doctor evaluation
vitamin B complex Tablet
1 tab PO DAILY
montelukast 10 mg Tablet
10 mg PO HS
azelastine 137 mcg (0.1 %) Aerosol,[place]
2 spray INTRANASAL HS
fluticasone propionate 50 mcg/actuation [place],Suspension
1 spray INTRANASAL HS
metronidazole 0.75 % Gel
1 applic TOPICAL HS
Align 10.5 mg (10 million cell) Tablet,Chewable
10.5 mg PO BID
Breztri Aerosphere 160-9-4.8 mcg/actuation Hfa Aerosol Inhaler
2 inh INHALATION R HS
Patient Comments:
10/31/2023, pt. states that they take 2 puffs at bedtime.
Tums
1 - 2 tab PO HSPRN PRN (Reason: gerd)
vitamin E
1 tab PO .SEE BELOW
Patient Comments:
10/31/2023, pt. unsure if they take this vitamin in AM or PM.
zinc
1 tab PO DAILY
Eliquis 5 MG tablet
5 mg PO BID
propranolol 40 mg Tablet
40 mg PO BID Qty: 0 0RF
Rx Instructions:
Hold for BP less than 110/80
Referrals:
Taty Blanca MD [Family Provider] -
Activity Restrictions/Additional Instructions:
As discussed you may take Tylenol 650 mg every 4-6 hours for discomfort. You may apply lidocaine patches daily remove after 12 hours. Also a prescription for Valium 2 mg tablets were sent to pharmacy. Take only as directed every 8 hours as
needed. This medication will cause tiredness drowsiness. Do not take your lorazepam while taking this medication. Follow-up with your family doctor the neck several days return if any worsening of symptoms
Interventions
Interventions:
*Risk Screen - Suicide Last Done: 11/22/23 08:02
*General Assessment Last Done: 11/22/23 08:02
*Neglect/Abuse Screening Last Done: 11/22/23 08:02
ED- Fall Risk Assessment Last Done: 11/22/23 08:02
*ED COVID-19 Vaccine History Last Done: 11/22/23 07:48
ED-Musculoskeletal Assessment Last Done: 11/22/23 08:02
[2023-11-22 08:49] LABS: % Basophils 0.5 % (0-2); % Eosinophils 1.3 % (0-6); % Immature Granulocytes 0.6 % (0-0.5); % Lymphocytes 19.1 % (20.5-51.1); % Monocytes 9.7 % (1.7-9.3); % Neutrophils 68.8 % (42.2-75.2); Absolute Basophils 0.1 10^3/uL (0-0.2); Absolute Eosinophils 0.1 10^3/uL (0-0.7); Absolute Immature Granulocytes 0.1 10^3/uL (0-0.05); Absolute Lymphocytes 1.9 10^3/uL (1.2-3.4); Absolute Neutrophils 6.8 10^3/uL (1.4-6.5); Hematocrit 34.3 % (37.0-47.0); Hemoglobin 12.5 g/dL (12.0-16.0); Mean Corp Hgb Conc. 36.4 g/dL (33.0-37.0); Mean Corpuscular Hgb 32.3 pg (27.0-31.0); Mean Corpuscular Volume 88.6 fL (81.0-99.0); Mean Platelet Volume 9.5 fL (7.4-10.4); Nucleated Red Blood Cells % 0 %; Platelet Count 268 10^3/uL (130-400); Red Blood Cell Count 3.87 10^6/uL (4.20-5.40); Red Cell Dist. Width 13.8 % (11.5-14.5); White Blood Cell Count 9.8 10^3/uL (4.8-10.8)
[2023-11-22 09:00] VITALS: BP 107/73
[2023-11-22 09:28] LABS: ALT (SGPT) 57 U/L (0-35); AST (SGOT) 57 U/L (14-36); Albumin 3.8 g/dl (3.5-5.0); Alkaline Phosphatase 119 U/L (38-126); Blood Urea Nitrogen 18 mg/dl (7-17); Calcium 9.8 mg/dl (8.4-10.2); Carbon Dioxide 23 mmol/L (22-30); Chloride 105 mmol/L (98-107); Estimated Creatinine Clearance 53 ml/min; Glucose 95 mg/dl (70-99); Sodium 139 mmol/L (135-145); Total Bilirubin 1.1 mg/dl (0.2-1.3); Total Protein 6.5 g/dl (6.3-8.2); eGFR > 60.00
[2023-11-22 09:38] LABS: Troponin I < 0.012 ng/ml
--- NOTE | 2023-11-22 09:54 | EDRN ---
the pt pressed the call soler and this RN entered the pts room, the pt stated to this RN that she needed to use the bathroom, this RN unhooked the pt from the monitor, the pts stated to this RN, 'Go get some socks for her and put them on
her', this RN provided the pts with socks for the pt and the pts put the socks on the pts feet, the pt was able to ambulate independently to the bathroom and back without difficulty, will continue to monitor the pt closely
[2023-11-22] MEDS: TYLENOL 650 MG PO (11:22)
[2023-11-22] MEDS: VALIUM INJECTION 2 MG IV (11:22)
[2023-11-22] MEDS: LIDOCAINE 4% PATCH 1 PATCH TOPICAL (11:23)
[2023-11-22 11:30] VITALS: BP 115/87
[2023-11-22 12:00] VITALS: BP 101/72
--- NOTE | 2023-11-22 12:33 | EDRN ---
pain was reassessed and the pt states to this RN that right upper back pain and right rib pain is currently a 2/10, the pt stated to this RN, 'I feel so much better i really do i would like to go home', this RN notified Jayne Escobar SEWING MACHINE ATTACHMENT TESTER, VS WNL,
will continue to monitor the pt closely
[2023-11-22 13:00] VITALS: BP 109/90
== END 2023-11-22 13:42 | disposition home or self-care (01) ==
LOC: EMR 07:45
PROVIDERS: Nurse Practitioner; EMERGENCY PHYSICIAN Emergency Medicine; FAMILY PHYSICIAN Family Medicine
DX: M54.9 Dorsalgia, unspecified (principal); R03.0 Elevated blood-pressure reading, without diagnosis of hypertension
CPT/HCPCS: 99285; 96374; 71275; 80053; 84484; 85025; 93005; Q9967

== ENCOUNTER → 2023-12-01 16:39 | Outpatient (REF) | payer MEDICARE, SELFPAY | LOC: RAD 16:39 | PROVIDERS: ATTENDING PHYSICIAN Family Medicine | DX: M54.6 Pain in thoracic spine (principal) | CPT/HCPCS: 72072 ==

== ENCOUNTER → 2024-02-15 07:55 | Outpatient (REF) | payer MEDICARE, SELFPAY ==
[2024-02-15 09:10] LABS: Ammonia < 9 umol/L (9-30)
[2024-02-15 09:55] LABS: Erythrocyte Sed Rate 18 mm/hour (0-20)
[2024-02-15 10:42] LABS: C-Reactive Protein < 5.00 mg/L (0.0-10.00)
[2024-02-15 10:43] LABS: ALT (SGPT) 32 U/L (0-35); AST (SGOT) 45 U/L (14-36); Albumin 4.3 g/dl (3.5-5.0); Alkaline Phosphatase 126 U/L (38-126); Blood Urea Nitrogen 22 mg/dl (7-17); Calcium 9.9 mg/dl (8.4-10.2); Carbon Dioxide 25 mmol/L (22-30); Chloride 108 mmol/L (98-107); Glucose 91 mg/dl (70-99); Potassium 4.9 mmol/L (3.5-5.1); Sodium 140 mmol/L (135-145); Total Bilirubin 0.8 mg/dl (0.2-1.3); Total Protein 7.1 g/dl (6.3-8.2); eGFR > 60.00
[2024-02-15 11:13] LABS: TSH Reflex To Free T4 2.06 uIU/ml (0.47-4.68)
[2024-02-15 11:50] LABS: Glycohemoglobin (HgbA1c) 5.5 % (4.0-5.6)
[2024-02-16 18:01] LABS: Copper, Serum 132.8 ug/dL (80.0-155.0)
[2024-02-16 22:23] LABS: Ceruloplasmin 30 mg/dL (16-45)
[2024-02-16 22:51] LABS: Arsenic, Blood <10.0 ug/L (<=12.0); Lead - Venous 2.9 ug/dL (<=4.9); Mercury, Blood 12.3 ug/L (<=10.0)
[2024-02-17 03:02] LABS: ANA, IgG Reflex to HEp-2 None Detected (None Detected)
== END ==
LOC: REG 07:55
PROVIDERS: ATTENDING PHYSICIAN Psychiatry & Neurology Neurology; FAMILY PHYSICIAN Family Medicine
DX: R25.1 Tremor, unspecified (principal); E78.5 Hyperlipidemia, unspecified
CPT/HCPCS: 36415; 80053; 82140; 82175; 82390; 82525; 83036; 83655; 83825; 84443; 85652; 86038; 86140

== ENCOUNTER → 2024-03-04 12:29 | Outpatient (REF) | payer MEDICARE, SELFPAY ==
[2024-03-06 19:01] LABS: Arsenic, Blood <10.0 ug/L (<=12.0); Lead - Venous 2.9 ug/dL (<=4.9); Mercury, Blood 13.3 ug/L (<=10.0)
== END ==
LOC: REG 12:29
PROVIDERS: ATTENDING PHYSICIAN Psychiatry & Neurology Neurology; FAMILY PHYSICIAN Family Medicine
DX: R25.1 Tremor, unspecified (principal)
CPT/HCPCS: 36415; 82175; 83655; 83825

== ENCOUNTER → 2024-03-12 12:23 | Outpatient (REF) | payer MEDICARE, SELFPAY | LOC: WDC 12:23 | PROVIDERS: ATTENDING PHYSICIAN Internal Medicine Hematology & Oncology; FAMILY PHYSICIAN Family Medicine | DX: Z85.3 Personal history of malignant neoplasm of breast (principal); Z12.31 Encounter for screening mammogram for malignant neoplasm of breast | CPT/HCPCS: 77063; 77067 ==

== ENCOUNTER → 2024-03-13 15:14 | Outpatient (REF) | payer MEDICARE, SELFPAY | LOC: MRI 3T 15:14 | PROVIDERS: ATTENDING PHYSICIAN Radiology Radiation Oncology; FAMILY PHYSICIAN Family Medicine | DX: Z85.3 Personal history of malignant neoplasm of breast (principal) | CPT/HCPCS: 77049; A9585 ==

== ENCOUNTER → 2024-03-18 13:35 | Outpatient (REF) | payer MEDICARE, SELFPAY | LOC: WDC 13:35 | PROVIDERS: ATTENDING PHYSICIAN Radiology Radiation Oncology; FAMILY PHYSICIAN Family Medicine | DX: R92.8 Other abnormal and inconclusive findings on diagnostic imaging of breast (principal) | CPT/HCPCS: 76642 ==

== ENCOUNTER 2024-04-19 06:12 | Day surgery (SDC) | payer MEDICARE, SELFPAY ==
[2024-04-04 09:19] VITALS: BMI 25.7
[2024-04-19] VITALS (8 sets, daily range): BP systolic 108–144; BP diastolic 81–100; BMI 25.7
[2024-04-19] MEDS: NORMOSOL-R 1000 IV (09:48)
[2024-04-19] MEDS: TYLENOL 650 MG PO (14:45)
== END 2024-04-19 15:42 | disposition home or self-care (01) ==
LOC: SDS 06:12
PROVIDERS: ATTENDING PHYSICIAN Otolaryngology Facial Plastic Surgery; FAMILY PHYSICIAN Family Medicine
DX: J32.9 Chronic sinusitis, unspecified (principal)
CPT/HCPCS: 31240; 31253; 31256; 31288; 88304; 88311; 87070; 87075; 87147; 87186; 87205

== ENCOUNTER → 2024-07-10 12:58 | Outpatient (REF) | payer MEDICARE, SELFPAY | LOC: WDC 12:58 | PROVIDERS: ATTENDING PHYSICIAN Internal Medicine Hematology & Oncology; FAMILY PHYSICIAN Family Medicine | DX: R92.2 Inconclusive mammogram (principal); Z85.3 Personal history of malignant neoplasm of breast; C50.412 Malignant neoplasm of upper-outer quadrant of left female breast | CPT/HCPCS: 76641 ==

== ENCOUNTER 2024-08-13 13:50 | Outpatient (RCR) | payer MEDICARE, SELFPAY | END 2024-08-13 23:59 | disposition home or self-care (01) | LOC: RPT 13:50 | PROVIDERS: ATTENDING PHYSICIAN Pain Medicine Interventional Pain Medicine; FAMILY PHYSICIAN Family Medicine | DX: M54.51 Vertebrogenic low back pain (principal); M47.816 Spondylosis without myelopathy or radiculopathy, lumbar region; Z73.6 Limitation of activities due to disability; R26.2 Difficulty in walking, not elsewhere classified | CPT/HCPCS: 97010; 97110; 97112; 97162 ==

== ENCOUNTER 2024-09-17 10:00 | Outpatient (RCR) | payer MEDICARE, SELFPAY | END 2024-09-17 23:59 | disposition home or self-care (01) | LOC: RPT 10:00 | PROVIDERS: ATTENDING PHYSICIAN Pain Medicine Interventional Pain Medicine; FAMILY PHYSICIAN Family Medicine | DX: M54.51 Vertebrogenic low back pain (principal); M47.816 Spondylosis without myelopathy or radiculopathy, lumbar region; Z73.6 Limitation of activities due to disability; R26.2 Difficulty in walking, not elsewhere classified | CPT/HCPCS: 97010; 97110; 97112 ==

== ENCOUNTER → 2024-09-18 13:51 | Outpatient (REF) | payer MEDICARE, SELFPAY | LOC: DHSLP 13:51 | PROVIDERS: ATTENDING PHYSICIAN Internal Medicine Critical Care Medicine; FAMILY PHYSICIAN Family Medicine | DX: G47.00 Insomnia, unspecified (principal); R06.83 Snoring | CPT/HCPCS: 95810 ==

== ENCOUNTER → 2024-10-08 11:13 | Outpatient (REF) | payer MEDICARE, SELFPAY | LOC: HWRCS 11:13 | PROVIDERS: ATTENDING PHYSICIAN Student in an Organized Health Care Education/Training Program; FAMILY PHYSICIAN Family Medicine | DX: I48.21 Permanent atrial fibrillation (principal) | CPT/HCPCS: 93306 ==

== ENCOUNTER 2024-10-10 10:02 | Outpatient (RCR) | payer MEDICARE, SELFPAY | END 2024-10-10 23:59 | disposition home or self-care (01) | LOC: RPT 10:02 | PROVIDERS: ATTENDING PHYSICIAN Pain Medicine Interventional Pain Medicine; FAMILY PHYSICIAN Family Medicine | DX: M54.51 Vertebrogenic low back pain (principal); M47.816 Spondylosis without myelopathy or radiculopathy, lumbar region; Z73.6 Limitation of activities due to disability; R26.2 Difficulty in walking, not elsewhere classified | CPT/HCPCS: 97010; 97110 ==

== ENCOUNTER → 2024-10-10 11:07 | Outpatient (REF) | payer MEDICARE, SELFPAY | LOC: RAD 11:07 | PROVIDERS: ATTENDING PHYSICIAN Family Medicine | DX: M25.512 Pain in left shoulder (principal) | CPT/HCPCS: 73030 ==

== ENCOUNTER → 2024-12-04 07:30 | Outpatient (REF) | payer MEDICARE, SELFPAY ==
[2024-12-04 08:23] LABS: % Basophils 0.6 % (0-2); % Eosinophils 2.6 % (0-6); % Immature Granulocytes 0.3 % (0-0.5); % Lymphocytes 28.1 % (20.5-51.1); % Monocytes 10.9 % (1.7-9.3); % Neutrophils 57.5 % (42.2-75.2); Absolute Eosinophils 0.2 10^3/uL (0-0.7); Absolute Lymphocytes 1.8 10^3/uL (1.2-3.4); Absolute Monocytes 0.7 10^3/uL (0.1-0.6); Absolute Neutrophils 3.7 10^3/uL (1.4-6.5); Hematocrit 40.9 % (37.0-47.0); Hemoglobin 14.1 g/dL (12.0-16.0); Mean Corp Hgb Conc. 34.5 g/dL (33.0-37.0); Mean Corpuscular Hgb 32.3 pg (27.0-31.0); Mean Corpuscular Volume 93.8 fL (81.0-99.0); Mean Platelet Volume 9.7 fL (7.4-10.4); Nucleated Red Blood Cells % 0 %; Platelet Count 252 10^3/uL (130-400); Red Blood Cell Count 4.36 10^6/uL (4.20-5.40); Red Cell Dist. Width 13.2 % (11.5-14.5); White Blood Cell Count 6.4 10^3/uL (4.8-10.8)
[2024-12-04 09:12] LABS: ALT (SGPT) 31 U/L (0-35); AST (SGOT) 36 U/L (14-36); Albumin 4.5 g/dl (3.5-5.0); Alkaline Phosphatase 121 U/L (38-126); Blood Urea Nitrogen 19 mg/dl (7-17); Calcium 9.9 mg/dl (8.4-10.2); Carbon Dioxide 25 mmol/L (22-30); Chloride 106 mmol/L (98-107); Glucose 98 mg/dl (70-99); Potassium 4.7 mmol/L (3.5-5.1); Sodium 141 mmol/L (135-145); Total Bilirubin 0.9 mg/dl (0.2-1.3); Total Cholesterol 182 mg/dl (50-199); Total Protein 7.1 g/dl (6.3-8.2); Triglyceride 71 mg/dl (10-149); Very Low Density Lipoprotein 14 mg/dl (0-30)
[2024-12-04 09:22] LABS: HDL Cholesterol 72 mg/dl; LDL Cholesterol, Calculated 96 mg/dl
[2024-12-04 09:30] LABS: TSH 4.44 uIU/ml (0.47-4.68)
== END ==
LOC: REG 07:30
PROVIDERS: ATTENDING PHYSICIAN Family Medicine
DX: Z79.01 Long term (current) use of anticoagulants (principal); E78.2 Mixed hyperlipidemia; I48.21 Permanent atrial fibrillation; E55.9 Vitamin D deficiency, unspecified
CPT/HCPCS: 36415; 80053; 80061; 82306; 84443; 85025

== ENCOUNTER 2025-01-01 14:54 | Outpatient (RCR) | payer MEDICARE, SELFPAY | END 2025-01-01 23:59 | disposition home or self-care (01) | LOC: RPT 14:54 | PROVIDERS: ATTENDING PHYSICIAN Family Medicine | DX: M54.12 Radiculopathy, cervical region (principal); M50.30 Other cervical disc degeneration, unspecified cervical region; M25.512 Pain in left shoulder; Z73.6 Limitation of activities due to disability; M62.81 Muscle weakness (generalized) | CPT/HCPCS: 97010; 97110; 97162 ==

== ENCOUNTER 2025-02-05 14:58 | Outpatient (RCR) | payer MEDICARE, SELFPAY | END 2025-02-05 23:59 | disposition home or self-care (01) | LOC: RPT 14:58 | PROVIDERS: ATTENDING PHYSICIAN Family Medicine | DX: M54.12 Radiculopathy, cervical region (principal); M50.30 Other cervical disc degeneration, unspecified cervical region; M25.512 Pain in left shoulder; Z73.6 Limitation of activities due to disability; M62.81 Muscle weakness (generalized) | CPT/HCPCS: 97010; 97110 ==

== ENCOUNTER 2025-03-05 14:50 | Outpatient (RCR) | payer MEDICARE, SELFPAY | END 2025-03-05 23:59 | disposition home or self-care (01) | LOC: RPT 14:50 | PROVIDERS: ATTENDING PHYSICIAN Family Medicine | DX: M54.12 Radiculopathy, cervical region (principal); M50.30 Other cervical disc degeneration, unspecified cervical region; M25.512 Pain in left shoulder; Z73.6 Limitation of activities due to disability; M62.81 Muscle weakness (generalized) | CPT/HCPCS: 97010; 97110 ==

== ENCOUNTER → 2025-03-11 19:17 | Outpatient (REF) | payer MEDICARE, SELFPAY | LOC: MRI 3T 19:17 | PROVIDERS: ATTENDING PHYSICIAN Radiology Radiation Oncology; FAMILY PHYSICIAN Family Medicine | DX: R92.30 Dense breasts, unspecified (principal); C50.112 Malignant neoplasm of central portion of left female breast; Z17.0 Estrogen receptor positive status [ER+] | CPT/HCPCS: 77049; A9585 ==

== ENCOUNTER → 2025-03-12 13:52 | Outpatient (REF) | payer MEDICARE, SELFPAY | LOC: WDC 13:52 | PROVIDERS: ATTENDING PHYSICIAN Radiology Radiation Oncology; FAMILY PHYSICIAN Family Medicine | DX: Z12.31 Encounter for screening mammogram for malignant neoplasm of breast (principal) | CPT/HCPCS: 77063; 77067 ==

== ENCOUNTER → 2025-03-13 13:50 | Outpatient (REF) | payer MEDICARE, SELFPAY | LOC: RAD 13:50 | PROVIDERS: ATTENDING PHYSICIAN Family Medicine | DX: Z78.0 Asymptomatic menopausal state (principal) | CPT/HCPCS: 77080 ==

== ENCOUNTER 2025-03-16 19:01 | Emergency (ER) | payer MEDICARE, SELFPAY ==
[2025-03-16 19:03] VITALS: BP 187/118
[2025-03-16 19:11] VITALS: BP 152/108
[2025-03-16 19:15] VITALS: BMI 22.9
[2025-03-16 19:49] LABS: % Basophils 0.6 % (0-2); % Eosinophils 1.5 % (0-6); % Immature Granulocytes 0.6 % (0-0.5); % Neutrophils 65.3 % (42.2-75.2); Absolute Eosinophils 0.1 10^3/uL (0-0.7); Absolute Lymphocytes 1.7 10^3/uL (1.2-3.4); Absolute Monocytes 0.6 10^3/uL (0.1-0.6); Absolute Neutrophils 4.7 10^3/uL (1.4-6.5); Hematocrit 40.7 % (37.0-47.0); Hemoglobin 14.2 g/dL (12.0-16.0); Mean Corp Hgb Conc. 34.9 g/dL (33.0-37.0); Mean Corpuscular Hgb 32.5 pg (27.0-31.0); Mean Corpuscular Volume 93.1 fL (81.0-99.0); Mean Platelet Volume 9.3 fL (7.4-10.4); Nucleated Red Blood Cells % 0 %; Platelet Count 206 10^3/uL (130-400); Red Blood Cell Count 4.37 10^6/uL (4.20-5.40); Red Cell Dist. Width 13.1 % (11.5-14.5); White Blood Cell Count 7.3 10^3/uL (4.8-10.8)
--- NOTE | 2025-03-16 19:56 | ED.GENMED ---
History of Present Illness
General
Chief Complaint: Blood Pressure Problem
Source: patient
Exam Limitations: none
Time Seen by Provider: 03/16/25 19:07
Nursing documentation reviewed up to this point in time: agreed with
History of Present Illness
History of Present Illness:
Patient is an 84-year-old female who presents to the ER for evaluation. For the past several days she reports she' has felt weird.' She reports she is not feeling herself. She feels a little 'woozy' and very mildly nauseous. She does have a
history of chronic A-fib and is on Eliquis. Her blood pressure is normally normal and reports today she took her blood pressure and it was elevated to 140s over 100s which is not normal for her. She denies any associated chest pain. She denies
any visual disturbance or shortness of breath. She denies any vertigo/room spinning sensation denies any neck pain trauma.
Past History
Past History
ED Past Medical History: Arrthythmia (atrial tachycardia), Cancer (basal cell carcinoma on back), GERD, Hypercholesterolemia, Psychiatric (generalized anxiety disorder), Other (Seasonal allergies, rheumatic heart disease 1950, BPPV), Other
(osteoarthritis) and Other (Lyme disease, diverticulosis)
ED Past Surgical History: Orthopedic (left wrist fracture 1959) and Other (hallux valgus, bunionectomy, sinoplasty, rhinoplasty)
Social History
Tobacco: Non-smoker
Alcohol: Occasional
Drug: None
Personal:
Living: with family
Employment: Retired
Family History
Family History: CAD
Review of Systems
Review of Systems
Allergies reviewed?: Yes
All Other Systems: ROS reviewed and negative except as documented in HPI and ROS
Constitutional: Reports no symptoms
Cardiac: Reports no symptoms
ABD/GI: Reports nausea; Denies vomiting or diarrhea
Musculoskeletal: Reports no symptoms
Skin: Reports no symptoms
Neurological: Reports other ('feels a little woozy' )
Psychiatric: Reports no symptoms
Phy Exam
General Physical Exam
General Presentation: no apparent distress
General age: appears stated age
General Skin: warm and dry
General Habitus: elderly
General Mental: alert
General Hydration: appears well hydrated
Cardiovascular Exam
Cardiovascular Exam: irregularly irregular
Pulmonary Exam
Pulmonary Exam: lungs clear and no respiratory distress
Neurological Exam
Neurological Exam: alert, oriented x3, no motor deficits and no sensory deficits
Musculoskeletal Exam
Musculoskeletal Exam: full ROM
Skin Exam
Skin Exam: normal color and warm/dry
Psychiatric Exam
Psychiatric Exam: normal mood/affect
Course
Orders/Labs/Results
Orders:
Orders
03/16/25 19:05
ECG [Electrocardiogram (*1)] Urgent
Reason for Study: Vertigo / Dizzy
03/16/25 19:06
EKG- Treatment ONCE
03/16/25 19:14
Cardiac Monitoring- Treatment ONCE
IV Insert/Care/Rem.- Treatment PRN
03/16/25 19:15
Electrocardiogram (*1) Stat
Reason for Study: Abdominal Pain
EKG- Treatment ONCE
03/16/25 19:37
Complete Blood Count/With Diff Urgent
Comprehensive Metabolic Panel Urgent
03/16/25 19:55
CT Head W/o Iv Contrast Urgent
Comment:
Reason For Exam: dizziness
03/16/25 20:23
Troponin I Urgent
03/16/25 21:29
UA Reflex to Culture [Urinalysis Reflex To Culture] Urgent
Date Specimen was Collected: 03/16/25
Time Specimen was Collected: 21:28
Abnormal Lab Results
03/16/25
19:37
MCH 32.5 H pg
(27.0-31.0)
Immature Gran % 0.6 H %
(0-0.5)
Chloride 111 H mmol/L
(98-107)
BUN 22 H mg/dl
(7-17)
Glucose 101 H mg/dl
(70-99)
ALT 40 H U/L
(0-35)
03/16/25 19:37
03/16/25 19:37
Vital Signs
Initial and Last Documented VS:
Initial Vital Signs
Temp Pulse Resp BP Pulse Ox
98.2 F 91 20 187/118 99
03/16/25 19:03 03/16/25 19:03 03/16/25 19:03 03/16/25 19:03 03/16/25 19:03
Last Documented Vital Signs
Temp Pulse Resp BP Pulse Ox
98.2 F 84 35 129/96 96
03/16/25 19:03 03/16/25 21:45 03/16/25 21:45 03/16/25 21:00 03/16/25 21:45
Hel[employer]der consulted with Physician
Hel[employer]der consulted with physician?: Yes
Name of Physician Consulted: Brad
MDM/Problems Addressed
Differential Diagnosis Includes:
not limited to: Elevated blood pressure, dehydration less likely CVA TIA
MDM/Problems Addressed:
Patient presents the awake alert no acute distress asymptomatic here has felt woozy and off for the past several days and has noticed her blood pressure has been elevated. no c/o of fever/chills or viral syndrome complaints.
She is in chronic A-fib on Eliquis no shortness of breath has not missed a dose. Blood pressure minimally elevated here however normal neurological exam no chest pain or shortness of breath no headache CT negative. Normal cardiac troponin normal
renal function
Patient is well-appearing stable for discharge home with outpatient with cardiology for reevaluation of elevated blood pressure.
Chronic conditions affecting care:
afib on chronic eliquis
*Radiology
Radiology exam reviewed: radiology read reviewed
*Pulse Oximetry
SaO2: 100
Oxygen Mode of Delivery: Room air
Patient hypoxic: not evaluated
*Critical Care Note
Total Time (30-74mins, 75-104mins- exclusive of procedures): Not Applicable
ED Attending Note
-
Portions of this chart may have been created with voice recognition software.� Occasional wrong word or��sound alike� substitutions may have occurred due to the inherent limitations of voice recognition software.
Discharge Plan
Departure
Patient Disposition: Home (Routine Discharge)
Date of Disposition: 03/16/25
Time of Disposition: 21:58
Patient with high blood pressure during this ER visit?: Yes
Condition: Fair
Covid-19: Not Applicable
Discharge Problem:
elevated blood pressure
Instructions: High Blood Pressure (DC), BLOOD PRESSURE
Prescriptions:
No Action
atorvastatin 40 MG tablet
40 mg PO QPM Qty: 30 0RF
Patient Comments:
10/31/2023, pt. took this med. in the morning today but she states that it is normally taken around dinner time.
minoxidil 2.5 mg Tablet
2.5 mg PO DAILY
vitamin B complex Tablet
1 tab PO DAILY
montelukast 10 mg Tablet
10 mg PO HS
zinc
1 tab PO DAILY
Eliquis 5 MG tablet
5 mg PO BID
propranolol 40 mg Tablet
40 mg PO BID Qty: 0 0RF
Rx Instructions:
Hold for BP less than 110/80
Probiotic
1 tab PO DAILY
Referrals:
Melvin Rausch MD [Active, Cardiology]
Taty Blanca MD [Family Provider, Family Practice]
Activity Restrictions/Additional Instructions:
As discussed follow a low-salt diet
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 You may continue to monitor your blood pressure. Continue to take your medicines as previously prescribed. Return if any worsening of symptoms.
Interventions
Interventions:
*General Assessment Last Done: 03/16/25 19:03
*ED- Fall Risk Assessment Last Done: 03/16/25 20:19
*ED COVID-19 Vaccine History Last Done: 03/16/25 20:19
ED- Cardiac Assessment Last Done: 03/16/25 19:15
ED- Neurological Assessment Last Done: 03/16/25 19:15
ED- Pulmonary Assessment Last Done: 03/16/25 19:15
Discharge Date and Time
Print Language: CHINESE
[2025-03-16 20:00] VITALS: BP 150/98
[2025-03-16 20:02] LABS: ALT (SGPT) 40 U/L (0-35); AST (SGOT) 34 U/L (14-36); Albumin 4.6 g/dl (3.5-5.0); Alkaline Phosphatase 102 U/L (38-126); Blood Urea Nitrogen 22 mg/dl (7-17); Calcium 9.7 mg/dl (8.4-10.2); Carbon Dioxide 22 mmol/L (22-30); Chloride 111 mmol/L (98-107); Estimated Creatinine Clearance 46 ml/min; Glucose 101 mg/dl (70-99); Potassium 4.5 mmol/L (3.5-5.1); Sodium 139 mmol/L (135-145); Total Protein 7.3 g/dl (6.3-8.2); eGFR > 60.00
[2025-03-16 21:00] VITALS: BP 129/96
[2025-03-16 21:06] LABS: Troponin I < 0.012 ng/ml
[2025-03-16 21:34] LABS: Urine Albumin Negative (Neg - Trace); Urine Bilirubin Negative (Negative); Urine Character Clear (Clear); Urine Color Yellow; Urine Glucose Negative (Negative); Urine Ketone Negative (Negative); Urine Leukocyte Negative (Negative); Urine Nitrite Negative (Negative); Urine Occult Blood Negative (Negative); Urine Specific Gravity 1.005 (<1.030); Urine Urobilinogen Negative (Neg - 1+)
[2025-03-16 22:00] VITALS: BP 114/78
== END 2025-03-16 22:34 | disposition home or self-care (01) ==
LOC: EMR 19:01
PROVIDERS: Nurse Practitioner; EMERGENCY PHYSICIAN Emergency Medicine; FAMILY PHYSICIAN Family Medicine
DX: R03.0 Elevated blood-pressure reading, without diagnosis of hypertension (principal); I48.91 Unspecified atrial fibrillation; E78.00 Pure hypercholesterolemia, unspecified; I47.19 Other supraventricular tachycardia; K21.9 Gastro-esophageal reflux disease without esophagitis; F41.1 Generalized anxiety disorder; I09.9 Rheumatic heart disease, unspecified; H81.10 Benign paroxysmal vertigo, unspecified ear; Z79.01 Long term (current) use of anticoagulants; Z82.49 Family history of ischemic heart disease and other diseases of the circulatory system; Z85.828 Personal history of other malignant neoplasm of skin
CPT/HCPCS: 99284; 70450; 80053; 81003; 84484; 85025; 93005

== ENCOUNTER → 2025-04-08 13:48 | Outpatient (REF) | payer MEDICARE, SELFPAY | LOC: WDC 13:48 | PROVIDERS: ATTENDING PHYSICIAN Radiology Radiation Oncology; FAMILY PHYSICIAN Family Medicine | DX: R92.8 Other abnormal and inconclusive findings on diagnostic imaging of breast (principal) | CPT/HCPCS: 76642 ==

== ENCOUNTER 2025-05-14 16:00 | Outpatient (RCR) | payer MEDICARE, SELFPAY | END 2025-05-14 23:59 | disposition home or self-care (01) | LOC: ROT 16:00 | PROVIDERS: ATTENDING PHYSICIAN Family Medicine | DX: R25.1 Tremor, unspecified (principal); Z73.6 Limitation of activities due to disability; M62.81 Muscle weakness (generalized); Z85.3 Personal history of malignant neoplasm of breast | CPT/HCPCS: 97110; 97166; 97535 ==

== ENCOUNTER 2025-05-28 14:54 | Outpatient (RCR) | payer MEDICARE, SELFPAY | END 2025-05-28 23:59 | disposition home or self-care (01) | LOC: ROT 14:54 | PROVIDERS: ATTENDING PHYSICIAN Family Medicine | DX: R25.1 Tremor, unspecified (principal); Z73.6 Limitation of activities due to disability; M62.81 Muscle weakness (generalized); Z85.3 Personal history of malignant neoplasm of breast | CPT/HCPCS: 70553; 97018; 97110; A9575 ==

== ENCOUNTER 2025-06-18 14:50 | Outpatient (RCR) | payer MEDICARE, SELFPAY | END 2025-06-18 23:59 | disposition home or self-care (01) | LOC: ROT 14:50 | PROVIDERS: ATTENDING PHYSICIAN Family Medicine | DX: R25.1 Tremor, unspecified (principal); Z73.6 Limitation of activities due to disability; M62.81 Muscle weakness (generalized); Z85.3 Personal history of malignant neoplasm of breast | CPT/HCPCS: 97018; 97110 ==

== ENCOUNTER → 2025-09-02 19:40 | Outpatient (REF) | payer MEDICARE, SELFPAY | LOC: PAVMRI 19:40 | PROVIDERS: ATTENDING PHYSICIAN Specialist; FAMILY PHYSICIAN Family Medicine | DX: M25.512 Pain in left shoulder (principal) | CPT/HCPCS: 73221 ==

== ENCOUNTER 2025-09-03 06:56 | Outpatient (RCR) | payer MEDICARE, SELFPAY | END 2025-09-03 23:59 | disposition home or self-care (01) | LOC: ROT 06:56 | PROVIDERS: ATTENDING PHYSICIAN Registered Nurse Critical Care Medicine | DX: R25.1 Tremor, unspecified (principal); Z73.6 Limitation of activities due to disability; M25.512 Pain in left shoulder; M25.522 Pain in left elbow; M25.521 Pain in right elbow | CPT/HCPCS: 97010; 97166; 97535 ==

== ENCOUNTER → 2025-09-09 12:36 | Outpatient (REF) | payer MEDICARE, SELFPAY | LOC: RAD 12:36 | PROVIDERS: ATTENDING PHYSICIAN Registered Nurse Critical Care Medicine; FAMILY PHYSICIAN Family Medicine | DX: R25.1 Tremor, unspecified (principal) | CPT/HCPCS: 93931 ==